=== PATIENT | male | born 1955 | race Caucasian/White ===

== ENCOUNTER 2024-11-05 07:39 | Day surgery (SDC) | payer OTHER, SELFPAY ==
[2024-11-05] VITALS (8 sets, daily range): BP systolic 117–128; BP diastolic 67–92; PULSE 72–79; RESP 14–18; TEMP 36.2–36.6; O2SAT 96–100; BMI 33.8
--- NOTE | 2024-11-05 10:09 | PCM.PRE.AN2 ---
ASA Classification* ASA Classification ASA Classification: 2 Assessment & Plan Anesthesia* Anesthesia Assessment Anesthesia Assessment: Discussed sedation and/or anesthesia options, risks, benefits, and alternatives with patient/parents/legal guardian/POA. Questions invited. The patient/parents/legal guardian/POA seems to understand and agrees to proceed with anesthesia plan. Reviewed the physical assessment, medical history, allergy history and patient home medications list prior to surgery/procedure/anesthetic and documented any changes. Performed airway and anesthesia risk assessments. Anesthesia Type Anesthesia Type: MAC History Source History Obtained from:: Patient and Chart Anesthesia Focused Assessment* Temperature: 97.7 F Pulse Rate: 78 Blood Pressure: 128/92 Respiratory Rate: 18 Pulse Ox: 100 Oxygen Delivery Method: Room Air Airway Assessment Mouth opens: >3 cm Mallampati Score: IV Teeth Condition: Intact Neck Range of motion (ROM): Limited ROM (Slight decrease in extension) Focused Labs Anesthesia Preop lab: CBC CHEMISTRY COAG Pre-Assessment Diagnosis/Proposed Procedure Planned Operative Procedure(s): RHINOPHOMA EXCISION Anesthesia History Anesthesia History - assembly instructions writer: Anesthesia History - assembly instructions writer Hx Hospitalization No 10/08/24 10:38 Any Problems With Anesthesia No 10/08/24 10:38 Cholinesterase deficiency No 10/08/24 10:38 You/Your Family Experience No 10/08/24 10:38 fever (hyperthermia) with Relationship Recent Exposure to Contagious No 11/05/24 09:18 Disease Does patient have nerve No 10/08/24 10:38 stimulator Patient instructed to have device shut off --Does patient have Pacemaker No 11/05/24 09:18 or ICD? When Was Last Pacemaker Check QUESTION #4 FULL TEXT: You/Your Family Experience fever (hyperthermia) with Anesthesia Last Oral Intake Last Oral intake: Last Oral Intake NPO since 19:00 11/05/24 09:18 Meds taken in AM with sips of No 11/05/24 09:18 water? Meds patient instructed to take am of surgery PONV PONV - assembly instructions writer: PONV - assembly instructions writer Female No 10/08/24 10:38 HX of Motion Sickness No 10/08/24 10:38 HX of N/V After Surgery No 10/08/24 10:38 Non-Smoker Yes 10/08/24 10:38 Duration of Surgery greater Yes 10/08/24 10:38 than 60 minutes Number of Risk Factors 2 10/08/24 10:38 PONV Score Moderate Risk 10/08/24 10:38 Height & Weight Height & Weight: Anesthesia: Height & Weight Height 5 ft 11 in 11/05/24 09:18 Weight: 110 kg 11/05/24 09:18 Body Mass Index (BMI) 33.8 11/05/24 09:18 Respiratory Assessment Respiratory Assessment - assembly instructions writer: Respiratory Tract Infection Hx - assembly instructions writer Hx Respiratory Tract Infection No 10/08/24 10:38 STOP Sleep Apnea STOP Sleep Apnea - assembly instructions writer: STOP Sleep Apnea - assembly instructions writer Hx Hypertension No 10/08/24 10:38 Hx Sleep Apnea No 10/08/24 10:38 CPAP BIPAP Do you snore loudly (louder No 10/08/24 10:38 than talking or can be heard Do you often feel tired/ No 10/08/24 10:38 fatigued/ sleepy during daytime? Has anyone observed you stop No 10/08/24 10:38 breathing during sleep? STOP Results Negative 10/08/24 10:38 QUESTION #5 FULL TEXT : Do you snore loudly (louder than talking or can be heard through closed doors)? Tobacco Use History Tobacco Use History - assembly instructions writer: Tobacco Use History - assembly instructions writer Tobacco Use Smoking Status Never smoker 10/08/24 10:38 Hx Tobacco Use No 10/08/24 10:38 Years Smoking Packs Smoked per Day Smoking Cessation Date was within the last 15 years Hx Smoking Cessation Date Hx Smoking Cessation Counseling Hematologic Medial History Hematologic Hx - assembly instructions writer: Hematologic Medical Hx - willow worker Hx of Blood Transfusion No 10/08/24 10:38 Hx of Transfusion in last 3 No 10/08/24 10:38 Months Date of Last Transfusion (if within last 3 months) Ever experience any problems No 10/08/24 10:38 with transfusion(s)? Specify any problems Hx of Preganancy in last 3 N/A 10/08/24 10:38 Months Nurse Filling Out Transfusion DSCHRIBER 10/08/24 10:38 & Questions: Date: 10/08/24 10/08/24 10:38 Time: 10:40 10/08/24 10:38 Patient unable to answer at this time (ie. confused, unrespo /Reproduction History /Reproductive History - assembly instructions writer: /Reproductive Hx- assembly instructions writer Hx Now No 10/08/24 10:38 Gestational Age (in weeks): EDC: Hx Hx Para Hx Section SAB No 10/08/24 10:38 Active Medications Active Medications: Current Medications Generic Name Dose Route Start Last Admin Trade Name Freq PRN Reason Stop Dose Admin Clindamycin Phosphate 900 mg in 50 mls @ 75 mls/hr 11/05/24 11:00 Cleocin IV 11/05/24 11:39 PREOP [facility] Medical History Alcohol use Injury of head and neck Heartburn Non-smoker Skin cancer Home Medications ?Medication ?Instructions ?Recorded ?Last Taken ?Type NK 09/26/24 Unknown History Allergy/AdvReac Type Severity Reaction Status Date / Time shellfish derived Allergy Severe Angioedema Verified 11/05/24 09:16 Penicillins Allergy Mild PT UNSURE Verified 11/05/24 09:16 OF REACTION Family History Other Cancer Surgical History Hx of colonoscopy with polypectomy Hx of tonsillectomy Social History Smoking Status: Never smoker alcohol intake: current Review of Systems (Anesthesia) ROS Narrative System reviewed and no additional complaints, except as documented.
--- NOTE | 2024-11-05 10:46 | PCM.HP.STD ---
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 He is a referral from [facility] dermatology (Dr. Manrique). Patient was also previously a patient of a plastic surgeon several years ago who used a laser on the left ala. Patient reports that there are some bumpy areas on the left ala status post laser resurfacing therapy, and he would rather that it be smoother. 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 He feels like his nose is a lot larger and bulkier now. No breathing issues at this point. Patient is not a smoker. No personal or family history of bleeding or clotting problems No history of any nasal skin cancers. He has been seeing [facility] for his skin cancer checks consistently, and is recently had some lesions frozen from his head. Current Encounter (DATE OF SURGERY H&P UPDATE): I saw and examined the patient this morning in pre-operative holding. We discussed risks and benefits of today's surgery and they would like to proceed. NO CHANGE in health history since last seen and evaluated. Ready to proceed with surgery. Caprini score is 4 [facility], [facility] Medical History Alcohol use Injury of head and neck Heartburn Non-smoker Skin cancer Home Medications ?Medication ?Instructions ?Recorded ?Last Taken ?Type NK 09/26/24 Unknown History Allergy/AdvReac Type Severity Reaction Status Date / Time shellfish derived Allergy Severe Angioedema Verified 11/05/24 09:16 Penicillins Allergy Mild PT UNSURE Verified 11/05/24 09:16 OF REACTION Family History Other Cancer Surgical History Hx of colonoscopy with polypectomy Hx of tonsillectomy Social History Smoking Status: Never smoker alcohol intake: current Vital Signs Vital Signs Vital Signs: 11/05/24 09:18 11/05/24 09:18 11/05/24 10:17 Temperature 97.7 F L 97.7 F L Temperature Source Temporal Pulse Rate 78 78 Respiratory Rate 18 18 Respiratory Pattern Normal Blood Pressure 128/92 H 128/92 H Blood Pressure Mean 104 Blood Pressure Source Monitor Blood Pressure Position Sitting Blood Pressure Location Left Arm Pulse Ox 100 100 Oxygen Delivery Method Room Air Room Air Weight Weight: 242 lb 8.136 oz Body Mass Index (BMI) 33.8 Physical Exam Narrative Cranial nerve exam: Cranial nerve II: visual acuity intact (able to read small letters from across the room). No changes in color interpretation. Cranial nerves III, IV and : extraocular movements intact, no diplopia with extraocular movements. Cranial nerve V: sensation to light touch intact in all 3 distributions of cranial nerve V. Cranial nerve VII: Patient is able to raise eyebrows, closes eyes, smile, purse lips, and move his lower lip to show his lower. Nasal exam: Nasal septum intact. No external nasal valve collapse. No improvement with breathing with Mehdi's maneuver (intact and internal nasal valve). Assessment & Plan Assessment/Plan (1) Rhinophyma: PLAN: INTERVAL H&P PLAN, DATE OF SURGERY: Patient with worsening rhinophyma. I talked to him about everything this morning again in pre-operative holding . We discussed options of excision with a scalpel, bur or a loop electrocautery to excise the sebaceous skin and recontour the nose. I talked to him about postoperative wound care (wound care) and also the risks of damage to underlying structures of the nose including the support structures of the nose like the cartilage, which might require reconstruction. We talked about poor scaring extensively. I talked to him about the potential for nasal collapse and airway problems requiring repeat surgeries. I talked him about cosmetic deformities and need for reconstruction. I talked him about asymmetry. He understands that there are no guarantees with this procedure. Patient showed me his main area of concern, which is the contour irregularities from the previous laser rhinophyma treatment on the left ala, but also the soft triagle region. Furthermore, I talked the patient extensively about the risks of surgery, including bleeding, pain/persistent pain, infection, damage to surrounding structures, surgical site dehiscence and wound formation, need for wound care, failure to obtain the desired result, asymmetry and poor scaring, DVT/PE, and the risks of anesthesia including , including stroke (from low blood pressure/ischemia or clot). The benefits and alternatives of this surgery were also discussed. All of their questions were answered, and they agreed to proceed with surgery. We will proceed with surgery today. CPT codes for insurance prior authorization are as follows: [id number]
--- NOTE | 2024-11-05 11:00 | LES_PTH ---
PATIENT: CRUZITO YBARRA [place] [facility] [place][id number] AGE/SX: 69/M ROOM: RE11/05/[address]: Dr. Ector Lancaster MD : 1955 BED: DIS: 11/05/2024 SPEC #: [id number] RECD: 11/06/24 10:40 STATUS: ARMANDO MICHAELS #: [id number] ALIVIA: 11/05/24 11:[address]: Ector Lancaster DEPT: SURGICAL PATHOLOGY RECD BY: Denis Garcia Tissues: A - Skin of nose, NOS B - Skin of nose, NOS C - Skin of nose, NOS D - Skin of nose, NOS Procedures: Surgery Specimen Level III Comments: @ Specimen number changed from [id number] to [id number] @ on 11/07/24 at 0853 by ALEXUS. HEADER OPERATION: Rhinophyma, excision PRE-OP DIAGNOSIS: Rhinophyma of nose TISSUE SUBMITTED: A- Left nasal ala rhinophyma excision, B- Right nasal ala groove rhinophyma excision, C- Left nasal ala groove rhinophyma excision, D- Right nasal ala rhinophyma excision MICROSCOPIC DIAGNOSIS A. Left nasal ala rhinophyma excision:Skin with prominent sebaceous glands and numerous cutaneous horns and epidermal inclusion cystsSolar elastosisDemodex B. Right nasal ala groove rhinophyma excision:Skin with prominent sebaceous glands and numerous cutaneous horns and epidermal inclusion cystsSolar elastosisDemodex C. Left nasal ala groove rhinophyma excision:Skin with prominent sebaceous glands and numerous cutaneous horns and epidermal inclusion cystsSolar elastosisDemodex D. Right nasal ala rhinophyma excision: Skin with prominent sebaceous glands and numerous cutaneous horns and epidermal inclusion cystsSolar elastosisDemodexJ Coretta MALIK, 11/12/2024 MICROSCOPIC DESCRIPTION Slides are reviewed. GROSS DESCRIPTION A. Received in fixative is one container labeled with the patient's name and designated Left nasal ala rhinophyma excision. The specimen consists of a piece of tissue measuring 0.8 x 0.5 x 0.1cm. Sectioned in its entirety in one cassette. B. Received in fixative is one container labeled with the patient's name and designated Right nasal ala groove rhinophyma excision. The specimen consists of multiple fragments of light chavez tissue measuring 1 x 0.5 x 0.1cm. The entire specimen is submitted in one cassette. C. Received in fixative is one container labeled with the patient's name and designated Left nasal ala groove rhinophyma excision. The specimen consists of a single fragment of chavez tissue measuring 0.7 x 0.6 x 0.1cm. The entire specimen is submitted in one cassette. D. Received in fixative is one container labeled with the patient's name and designated Right nasal ala rhinophyma excision. The specimen consists of a single fragment of tissue measuring 0.6 x 0.6 x 0.1cm. The entire specimen is submitted in one cassette. 11/06/2024 CPT:82224g1, TC:5
[2024-11-05] MEDS: Povidone Iodine 30 ML Opthalmic Sol 1 DRP (11:08)
[2024-11-05] MEDS: Clindamycin 900 MG/50 ML BAG 75 MG IV (11:09)
[2024-11-05] MEDS: Epinephrine (1 mg/ml) 1 MG/ML VIAL (11:12)
[2024-11-05] MEDS: Lidocaine 1% /Epi 1:100 (20ml) 20 ML Vial (11:23)
[2024-11-05] MEDS: Bupiv/Epi 0.25% 30 ML Vial (11:23)
[2024-11-05] MEDS: Erythromycin Base 1 OPTH.TUBE 1 APPLIC (12:13)
[2024-11-05] MEDS: Sodium/Calcium/Mag/Potassium 15 ML Bottle (12:14)
--- NOTE | 2024-11-05 12:27 | PCM.POST.ANE ---
Anesthesia: Postop Eval I Current Vital Signs Temperature: 97.4 F Pulse Rate: 72 Blood Pressure: 117/74 Respiratory Rate: 14 Pulse Ox: 98 Oxygen Delivery Method: Room Air Assessment Airway patent: Yes Spontaneous unlabored respirations: Yes Mental status: Calm nausea: No Vomiting: No Anesthesia Complication: No Fluid Hydration Crystalloid volume administer (ml): 800 Total IV fluid infused: 800 Progress Note Anesthesia document: Postop Eval 1 completed: Yes
--- NOTE | 2024-11-05 14:17 | POSTOPAN2_ITS ---
Anesthesia Postop Eval I Sum Postop Eval Completion status Anesthesia document: Postop Eval 1 completed: Yes Anesthesia Postop Eval I Summary Anesthesia Postop Eval I Summary: Anesthesia Postop Eval I: Assessment Summary Airway patent Yes 11/05/24 12:27 [email or web address] Spontaneous unlabored Yes 11/05/24 12:27 [email or web address] [email or web address] respirations Mental status Calm 11/05/24 12:27 [email or web address] nausea No 11/05/24 12:27 [email or web address] [email or web address] Vomiting No 11/05/24 12:27 [email or web address] Anesthesia Postop Eval I: Fluid Summary Crystalloid volume administer 800 11/05/24 12:27 [email or web address] (ml) Colloids volume administered ( ml) Blood Product volume administered (ml) Total IV fluid infused 800 11/05/24 12:27 [email or web address] Anesthesia Postop Eval I: Summary Notes Anesthesia Complication No 11/05/24 12:27 [email or web address] Anesthesia Complication Comment: Post-operative progress note Anesthesia: Postop Eval II Evaluation Mental status: Awake Pain Level: 2 nausea: No Vomiting: No
--- NOTE | 2024-11-05 14:17 | PCM.POSTANE2 ---
Anesthesia Postop Eval I Sum Postop Eval Completion status Anesthesia document: Postop Eval 1 completed: Yes Anesthesia Postop Eval I Summary Anesthesia Postop Eval I Summary: Anesthesia Postop Eval I: Assessment Summary Airway patent Yes 11/05/24 12:27 [email or web address] Spontaneous unlabored Yes 11/05/24 12:27 MANAGER [email or web address] respirations Mental status Calm 11/05/24 12:27 MANAGER [email or web address] nausea No 11/05/24 12:27 MANAGER [email or web address] Vomiting No 11/05/24 12:27 MANAGER [email or web address] Anesthesia Postop Eval I: Fluid Summary Crystalloid volume administer 800 11/05/24 12:27 [email or web address] (ml) Colloids volume administered ( ml) Blood Product volume administered (ml) Total IV fluid infused 800 11/05/24 12:27 MANAGER [email or web address] Anesthesia Postop Eval I: Summary Notes Anesthesia Complication No 11/05/24 12:27 MANAGER [email or web address] Anesthesia Complication Comment: Post-operative progress note Anesthesia: Postop Eval II Evaluation Mental status: Awake Pain Level: 2 nausea: No Vomiting: No
--- NOTE | 2024-11-05 15:25 | OP.PCM_ITS ---
Operative Report (Standard) Operative Information Date of Procedure: 11/05/24 Pre-Operative Diagnosis: Rhinophyma Post-Operative Diagnosis: Same Surgery/Procedure Performed: 1) Rhinophyma excision (CPT: 62792) workforce development specialist: Yes Assembler Adjuster: Svitlana Oliva Tasks completed by first press operator: Retracting Type of Anesthesia: MAC/Supplemental (A nasal block with 8 cc of a 50/50 mixture of 1% lidocaine with 1:200,000 epinephrine and 0.25% Marcaine with 1:200,000 epinephrine ) RN Documented Start/Stop Times: Operation Date: 11/05/24 11:00 Case Time Into Pre-Op 11/05/24 09:06 Anesthesia Start 11/05/24 10:56 Into Room 11/05/24 10:56 Out of Pre-Op 11/05/24 10:56 Procedure Start 11/05/24 11:12 Procedure End 11/05/24 12:20 Anesthesia End 11/05/24 12:21 Out of Room 11/05/24 12:21 Into Recovery 11/05/24 12:25 Out of Recovery 11/05/24 12:40 Into Phase II Recovery 11/05/24 12:43 Out of Phase II 11/05/24 13:42 Procedure Start Time: 11:12 Procedure Stop Time: 12:20 Select all DRAINS/GRAFTS/IMPLANTS that apply: None Estimated Blood Loss: 20 cc Specimen collected: Yes Description of specimen(s) removed: 1) Left nasal ala rhinophyma excision 2) Right nasal ala rhinophyma excision 3) Left alar groove rhinophyma excision 4) Right alar groove rhinophyma excision Description of surgery: Indications: Anupam Jeronimo is a delightful 69-year-old male with rhinophyma referred to me by his town planner (Dr. Jose Ramon Cain) who has been checking him for skin cancers and noticed the rhinophyma. The rhinophyma has been treated in the past with a laser on the left nasal ala which was unsuccessful per patient report, as there were several alar irregularities and contour abnormalities. I talked to the patient extensively about potentially smoothing this area out, but I explained to him that there were no guarantees that this would be accomplished and no guarantees that we would accomplish symmetry between the sides; however, I suggested that we could potentially make an improvement by excising more of the sebaceous material and smoothing out the left ala, and left alar groove and getting the contralateral side to match as best as possible. He wanted wanted to proceed with excision of rhinophyma on the bilateral ala and the alar grooves, but wanted limited excision in other locations to prevent his nose looking too small. We talked about the risks of asymmetry, poor scarring, wound problems, the risk of anesthesia, pain, and other risks benefits and alternatives to the procedure. He elected to proceed. Procedure details: Patient was correct identified in preoperative holding and taken back to the operating room where he was administered sedation and a local block as noted above to his nose. He was given time to take effect. He was prepped and draped in sterile fashion and all proper timeouts were performed. 15 blade scalpel was then used to excise excess rhinophyma tissue from the left nasal ala, the right nasal ala, and the bilateral alar grooves so as to obtain symmetry as best as possible without excising too much tissue. Hemostasis was o btained with epinephrine soaked Telfa's, followed by Bovie electrocautery and Ellman electrocautery. The specimens as noted above were sent to pathology. The patient tolerated the procedure well. Erythromycin ointment was applied to the nasal wounds. He was awakened and taken the PACU in stable condition. Post operative plan: Patient will place erythromycin ointment over the nasal wounds twice daily and as needed to keep moist. Follow-up in clinic in 2 days on 07 November 2024 to check progress. Follow-up pathology results. Surgical Findings: Sebaceous tissue at the base of the wounds, no exposed cartilage (wounds at the end of the case were partial-thickness as intended). Complications Complications: No Admit VTE Documentation VTE Mechan Device Prophylaxis: SCD's
== END 2024-11-05 13:42 | disposition home or self-care (01) ==
LOC: SDC 07:50 → AC 07:50
PROVIDERS: Referring Provider Surgery Plastic and Reconstructive Surgery; Visit Provider Surgery Plastic and Reconstructive Surgery
PROC: (CPT 30120; principal; 2024-11-05 10:50)
DX: L71.1 Rhinophyma (principal); L76.82 Other postprocedural complications of skin and subcutaneous tissue; Y81.8 Miscellaneous general- and plastic-surgery devices associated with adverse incidents, not elsewhere classified; L85.8 Other specified epidermal thickening; L72.0 Epidermal cyst; L57.8 Other skin changes due to chronic exposure to nonionizing radiation
CPT/HCPCS: 30120; 00160; 88304; A4216; J2405